=== PATIENT | female | born 1945 | race Two or more races ===

== ENCOUNTER → 2017-08-21 | Outpatient (CLI) | payer MEDICARE | END | disposition home or self-care (01) | LOC: RADPV 10:49 | PROVIDERS: ATTEND Hospitalist | DX: N28.1 Cyst of kidney, acquired (principal) | CPT/HCPCS: 76770 ==

== ENCOUNTER 2019-01-27 08:36 | Day surgery (SDC) | payer MEDICARE ==
[~2019-01-27] VITALS: Ht 152.4 cm; Wt 75.5 kg
[~2019-01-27 08:36] MED LIST: 0.9% SODIUM CHLORIDE 10 ML SYRINGE IVP PRN; AMLO-511 PO; ASPI-1182 PO; ATOR40TA28 PO; CALC-911 PO; CHOL50004 PO; CYAN50008 SL; FURO20 PO; GLIP5 PO; HYDR25TA PO; LINA5TAB PO; LISI-662 PO; LORA10TA7 PO; LOSA50TA64 PO; METF-960 PO; METO25 PO; METOPROLOL TARTRATE 50 MG TABLET PO PRN
[2019-01-27 09:30] LABS: CREATININE 1.59 mg/dL (0.60-1.30); POTASSIUM 4.5 mmol/L (3.5-5.1)
[2019-01-27] MEDS ORDERED: TRAM50TA4 PO (09:35)
[2019-01-27] MEDS ORDERED: CILO100T PO (09:35)
[2019-01-27] MEDS ORDERED: ONDA4 PO (09:35)
[2019-01-27] MEDS ORDERED: RANI150T7 PO (09:35)
[2019-01-27] MEDS ORDERED: INSLAN SQ (09:35)
== END 2019-01-27 10:40 | disposition home or self-care (01) ==
LOC: SURGERY 08:36 → EDSTATUS 10:30 → SURGERY 10:40
PROVIDERS: ATTEND Internal Medicine Cardiovascular Disease
DX: R07.9 Chest pain, unspecified (principal); Z53.8 Procedure and treatment not carried out for other reasons; K21.9 Gastro-esophageal reflux disease without esophagitis; M19.90 Unspecified osteoarthritis, unspecified site; Z98.890 Other specified postprocedural states; Z87.01 Personal history of pneumonia (recurrent)
CPT/HCPCS: 93005